=== PATIENT | male | born 1975 | race Caucasian/White ===

== ENCOUNTER 2018-07-29 05:48 | Emergency (ER) | payer OTHER, SELFPAY ==
--- NOTE | 2018-07-29 05:59 | ED.LOWEXIN ---
HPI - Extremity Injury (Lower) General Chief Complaint: Extremity Injury, Lower Stated Complaint: right foot pain/injured at work [id number] Time Seen by Provider: 07/29/18 05:59 Source: patient Mode of arrival: ambulatory Limitations: no limitations History of Present Illness HPI Narrative: 42-year-old with noncontributory medical history presents with right foot and ankle pain after a work related injury a few weeks ago. He was walking up an incline while caring a heavy object and felt pain in his foot. He has been pushing through it but due to ongoing pain his boss sent him for evaluation. He denies any significant or traumatic event. He denies numbness, tingling or weakness. He denies any history of the same. He denies any injury other than the work related event 2 weeks ago MD complaint: ankle injury and foot injury Onset (ago): week(s) Type of Injury: inversion Place: work Severity: moderate Relieving factors: immobilization Exacerbating factors: movement Context: walking Associated symptoms: snap/pop sensation, swelling and able to partially bear weight Related Data Home Medications Medication Instructions Recorded Confirmed lisinopril PO QDAY #0 06/16/17 metoprolol tartrate PO BID #0 06/16/17 trazodone PO HS #0 06/16/17 Previous Rx's Medication Instructions Recorded hydrocodone-acetaminophen [Cotopax[place]] 1 - 2 tab PO Q6HP PRN #10 tab 06/16/17 ondansetron [Zofran ODT] 4 mg SUBLINGUAL Q6HP PRN #8 odt 06/16/17 Allergies Allergy/AdvReac Type Severity Reaction Status Date / Time No Known Allergies Allergy Uncoded 02/24/18 12:46 Review of Systems Review of Systems GENERAL: Denies chills, fatigue, malaise, fever, sweats. HEENT: Denies sinus pain, ear pain, sore throat, difficulty swallowing, dizziness. RESPIRATORY: Denies dyspnea, cough, wheezing, hemoptysis, sputum. CARDIOVASCULAR: Denies chest pain, palpitations, orthopnea, edema, GASTROINTESTINAL: Denies nausea, vomiting, abdominal pain, diarrhea, constipation, melena. : Denies dysuria, frequency, incontinence, hematuria, urinary retention. MUSCULOSKELETAL: See HPI SKIN: Denies rash, skin lesions, or other NEUROLOGIC: Denies weakness, headache, numbness, change in speech, confusion, seizures, incoordination. PSYCHIATRIC: No concerning psychosocial issues. 12 point review of systems is negative except for those stated above [facility] Social History Smoking Status: Current every day smoker Exam Narrative Exam Narrative: GEN: AOx3 and in mild distress EYES: Pupils are equal, round, and reactive to light and accommodation. Extraoccular muscles are intact bilaterally. There is no subconjunctival hemorrhage or exudate. CHEST: Lungs are clear to auscultation bilaterally and free of wheezes, rales, or rhonchi. Heart rate is regular rhythm, there are no murmurs, clicks, rubs, or gallops. There is no chest wall tenderness. ABD: Abdomen is soft and nontender. There is no guarding or rebound. Bowel sounds are normal in all 4 quadrants. There is no mass or organomegaly. EXT: Full but painful range of motion at ankle and foot. No obvious external abnormalities such as swelling, ecchymosis or discoloration. Cap refill less than 2 sec, sensation intact SKIN: Warm, pink, and dry. No erythema or rash Initial Vital Signs Initial Vital Signs: Vital Signs Temperature 98 F 07/29/18 06:04 Pulse Rate 80 07/29/18 06:04 Respiratory Rate 18 07/29/18 06:04 Blood Pressure 140/101 H 07/29/18 06:04 Pulse Oximetry 99 07/29/18 06:04 Course Orders Ordered: ED Orders 07/29/18 06:39 XR ankle RT min 3V Stat XR foot RT min 3V Stat Vital Signs - 8 hr 07/29/18 06:04 Temperature 98 F Pulse Rate 80 Respiratory Rate 18 Blood Pressure 140/101 H Pulse Oximetry 99 MDM - Extremity Injury (Lower) Differential Diagnosis Likely ankle sprain and strain and ankle fracture Imaging Data Foot/Ankle Xray: Attestation: I personally reviewed and interpreted this imaging study as follows: My impression: No acute process Radiologist's impression: [address] [address] XRay Report Signed Patient: Eugene Meza LMR#: [id number] : 1975Acct:[id number] Age/Sex: 42 / MDate of Service: 07/29/18 Loc: ED Accession Number: [id number] Procedure: XR ankle RT min 3V Ordering Provider: Lionel Mcdonald D.O. PROCEDURE: XR ANKLE RT MIN 3V INDICATIONS: PAIN WITH WORK INJURY TECHNIQUE: 3 views of the ankle were acquired. COMPARISON: [facility], XR FOOT RT MIN 3V, 07/29/2018, 6:35. FINDINGS: Bones: No fractures or dislocations. Ankle mortise is normally aligned. No suspicious bony lesions. Large bone spur or heterotopic ossification superficial to the anterior process of talus. Soft tissues: No tibiotalar joint effusion. Achilles tendon appears normal. IMPRESSION: No fracture or dislocation. If clinical symptoms persist or clinical suspicion for pathology is high, a repeat examination in 7-10 days, or advanced imaging such as CT or MRI is suggested for further evaluation. Dictated by: Tracey Carrion M.D. on 07/29/2018 at 10:38 Approved by: Tracey Carrion M.D. on 07/29/2018 at 10:39 [place] [address] XRay Report Signed Patient: Eugene Meza LMR#: [id number] : 1975Acct:[id number] Age/Sex: 42 / MDate of Service: 07/29/18 Loc: ED Accession Number: [id number] Procedure: XR foot RT min 3V Ordering Provider: Lionel Mcdonald D.O. PROCEDURE: XR FOOT RT MIN 3V INDICATIONS: PAIN AFTER WORK INJURY TECHNIQUE: 3 views of the foot were acquired. COMPARISON: [facility], XR ANKLE RT MIN 3V, 07/29/2018, 6:35. FINDINGS: Bones: No fractures or dislocations. No suspicious bony lesions. Mild degenerative joint disease at the first tarsometatarsal joint and multiple interphalangeal joints. There is a large osteophyte or heterotopic ossification superficial to the anterior process of the talus. Soft tissues: No tibiotalar joint effusion. Achilles tendon appears normal. IMPRESSION: No fracture or dislocation. If clinical symptoms persist or clinical suspicion for pathology is high, a repeat examination in 7-10 days, or advanced imaging such as CT or MRI is suggested for further evaluation. Dictated by: Tracey Carrion M.D. on 07/29/2018 at 10:36 Approved by: Tracey Carrion M.D. on 07/29/2018 at 10:38 Discharge Plan Departure Patient Disposition: Home Clinical Impression: Ankle sprain and strain, Right foot strain Discharge Date/Time: 07/29/18 07:44 Interventions: ED Discharge Assessment Last Done: 07/29/18 07:43 Instructions: DI for Ankle Sprain Activity Restrictions/Additional Instructions: *You have been diagnosed with [acute right foot and ankle sprain ] *What to do: *Take medications as directed: Ibuprofen and Tylenol *Follow up with your primary care provider in 2-3 days, call for an appointment. Let them know you were seen in the Emergency Department and that we ask that you be seen in follow up *Return to ER if you should have any new, worsening or concerning symptoms Radiographic study has been interpreted by an emergency physician. The official diagnosis by radiology will be performed within the next 24 hours and should there be any change in outcome we will notify you of how to proceed. Prescriptions: No Action trazodone 50 mg Tablet PO HS Qty: 0 RF: 0 metoprolol tartrate 25 mg Tablet PO BID Qty: 0 RF: 0 lisinopril 2.5 mg Tablet PO QDAY Qty: 0 RF: 0 hydrocodone-acetaminophen [Cotopaxi] 5 MG/325 MG tablet 1 - 2 tab PO Q6HP PRNQty: 10 RF: 0 ondansetron [Zofran ODT] 4 MG tablet,disintegrating 4 mg Sublingual Q6HP PRNQty: 8 RF: 0 Referrals: Eugene Alexandra MD [Primary Care Provider] -
[2018-07-29 06:04] VITALS: BP 140/101; PULSE 80; RESP 18; TEMP 36.6; O2SAT 99; BMI 36.0
--- NOTE | 2018-07-29 06:39 | DI.RAD.S_ITS ---
PROCEDURE: XR ANKLE RT MIN 3V INDICATIONS: PAIN WITH WORK INJURY TECHNIQUE: 3 views of the ankle were acquired. COMPARISON: [facility], CR, XR FOOT RT MIN 3V, 07/29/2018, 6:35. FINDINGS: Bones: No fractures or dislocations. Ankle mortise is normally aligned. No suspicious bony lesions. Large bone spur or heterotopic ossification superficial to the anterior process of talus. Soft tissues: No tibiotalar joint effusion. Achilles tendon appears normal. IMPRESSION: No fracture or dislocation. If clinical symptoms persist or clinical suspicion for pathology is high, a repeat examination in 7-10 days, or advanced imaging such as CT or MRI is suggested for further evaluation. Dictated by: Tracey Carrion M.D. on 07/29/2018 at 10:38 Approved by: Tracey Carrion M.D. on 07/29/2018 at 10:39
--- NOTE | 2018-07-29 06:39 | DI.RAD.S_ITS ---
PROCEDURE: XR FOOT RT MIN 3V INDICATIONS: PAIN AFTER WORK INJURY TECHNIQUE: 3 views of the foot were acquired. COMPARISON: [facility], CR, XR ANKLE RT MIN 3V, 07/29/2018, 6:35. FINDINGS: Bones: No fractures or dislocations. No suspicious bony lesions. Mild degenerative joint disease at the first tarsometatarsal joint and multiple interphalangeal joints. There is a large osteophyte or heterotopic ossification superficial to the anterior process of the talus. Soft tissues: No tibiotalar joint effusion. Achilles tendon appears normal. IMPRESSION: No fracture or dislocation. If clinical symptoms persist or clinical suspicion for pathology is high, a repeat examination in 7-10 days, or advanced imaging such as CT or MRI is suggested for further evaluation. Dictated by: Tracey Carrion M.D. on 07/29/2018 at 10:36 Approved by: Tracey Carrion M.D. on 07/29/2018 at 10:38
--- NOTE | 2018-07-29 07:19 | ED_ITS ---
HPI - Extremity Injury (Lower) General Chief Complaint: Extremity Injury, Lower Stated Complaint: right foot pain/injured at work [id number] Time Seen by Provider: 07/29/18 05:59 Source: patient Mode of arrival: ambulatory Limitations: no limitations History of Present Illness HPI Narrative: 42-year-old with noncontributory medical history presents with right foot and ankle pain after a work related injury a few weeks ago. He was walking up an incline while caring a heavy object and felt pain in his foot. He has been pushing through it but due to ongoing pain his boss sent him for evaluation. He denies any significant or traumatic event. He denies numbness, tingling or weakness. He denies any history of the same. He denies any injury other than the work related event 2 weeks ago MD complaint: ankle injury and foot injury Onset (ago): week(s) Type of Injury: inversion Place: work Severity: moderate Relieving factors: immobilization Exacerbating factors: movement Context: walking Associated symptoms: snap/pop sensation, swelling and able to partially bear weight Related Data Home Medications Medication Instructions Recorded Confirmed lisinopril PO QDAY #0 06/16/17 metoprolol tartrate PO BID #0 06/16/17 trazodone PO HS #0 06/16/17 Previous Rx's Medication Instructions Recorded hydrocodone-acetaminophen [[place]] 1 - 2 tab PO Q6HP PRN #10 tab 06/16/17 ondansetron [Zofran ODT] 4 mg SUBLINGUAL Q6HP PRN #8 odt 06/16/17 Allergies Allergy/AdvReac Type Severity Reaction Status Date / Time No Known Allergies Allergy Uncoded 02/24/18 12:46 Review of Systems Review of Systems GENERAL: Denies chills, fatigue, malaise, fever, sweats. HEENT: Denies sinus pain, ear pain, sore throat, difficulty swallowing, dizziness. RESPIRATORY: Denies dyspnea, cough, wheezing, hemoptysis, sputum. CARDIOVASCULAR: Denies chest pain, palpitations, orthopnea, edema, GASTROINTESTINAL: Denies nausea, vomiting, abdominal pain, diarrhea, constipation, melena. : Denies dysuria, frequency, incontinence, hematuria, urinary retention. MUSCULOSKELETAL: See HPI SKIN: Denies rash, skin lesions, or other NEUROLOGIC: Denies weakness, headache, numbness, change in speech, confusion, seizures, incoordination. PSYCHIATRIC: No concerning psychosocial issues. 12 point review of systems is negative except for those stated above [facility] Social History Smoking Status: Current every day smoker Exam Narrative Exam Narrative: GEN: AOx3 and in mild distress EYES: Pupils are equal, round, and reactive to light and accommodation. Extraoccular muscles are intact bilaterally. There is no subconjunctival hemorrhage or exudate. CHEST: Lungs are clear to auscultation bilaterally and free of wheezes, rales, or rhonchi. Heart rate is regular rhythm, there are no murmurs, clicks, rubs, or gallops. There is no chest wall tenderness. ABD: Abdomen is soft and nontender. There is no guarding or rebound. Bowel sounds are normal in all 4 quadrants. There is no mass or organomegaly. EXT: Full but painful range of motion at ankle and foot. No obvious external abnormalities such as swelling, ecchymosis or discoloration. Cap refill less than 2 sec, sensation intact SKIN: Warm, pink, and dry. No erythema or rash Initial Vital Signs Initial Vital Signs: Vital Signs Temperature 98 F 07/29/18 06:04 Pulse Rate 80 07/29/18 06:04 Respiratory Rate 18 07/29/18 06:04 Blood Pressure 140/101 H 07/29/18 06:04 Pulse Oximetry 99 07/29/18 06:04 Course Orders Ordered: ED Orders 07/29/18 06:39 XR ankle RT min 3V Stat XR foot RT min 3V Stat Vital Signs - 8 hr 07/29/18 06:04 Temperature 98 F Pulse Rate 80 Respiratory Rate 18 Blood Pressure 140/101 H Pulse Oximetry 99 MDM - Extremity Injury (Lower) Differential Diagnosis Likely ankle sprain and strain and ankle fracture Imaging Data Foot/Ankle Xray: Attestation: I personally reviewed and interpreted this imaging study as follows: My impression: No acute process Radiologist's impression: [address] [address] XRay Report Signed Patient: Eugene Meza LMR#: [id number] : 1975Acct:[id number] Age/Sex: 42 / MDate of Service: 07/29/18 Loc: ED Accession Number: [id number] Procedure: XR ankle RT min 3V Ordering Provider: Lionel Mcdonald D.O. PROCEDURE: XR ANKLE RT MIN 3V INDICATIONS: PAIN WITH WORK INJURY TECHNIQUE: 3 views of the ankle were acquired. COMPARISON: [facility], XR FOOT RT MIN 3V, 07/29/2018, 6:35. FINDINGS: Bones: No fractures or dislocations. Ankle mortise is normally aligned. No suspicious bony lesions. Large bone spur or heterotopic ossification superficial to the anterior process of talus. Soft tissues: No tibiotalar joint effusion. Achilles tendon appears normal. IMPRESSION: No fracture or dislocation. If clinical symptoms persist or clinical suspicion for pathology is high, a repeat examination in 7-10 days, or advanced imaging such as CT or MRI is suggested for further evaluation. Dictated by: Tracey Carrion M.D. on 07/29/2018 at 10:38 Approved by: Tracey Carrion M.D. on 07/29/2018 at 10:39 [place] [address] XRay Report Signed Patient: Eugene Meza LMR#: [id number] : 1975Acct:[id number] Age/Sex: 42 / MDate of Service: 07/29/18 Loc: ED Accession Number: [id number] Procedure: XR foot RT min 3V Ordering Provider: Lionel Mcdonald D.O. PROCEDURE: XR FOOT RT MIN 3V INDICATIONS: PAIN AFTER WORK INJURY TECHNIQUE: 3 views of the foot were acquired. COMPARISON: [facility], XR ANKLE RT MIN 3V, 07/29/2018, 6:35. FINDINGS: Bones: No fractures or dislocations. No suspicious bony lesions. Mild degenerative joint disease at the first tarsometatarsal joint and multiple interphalangeal joints. There is a large osteophyte or heterotopic ossification superficial to the anterior process of the talus. Soft tissues: No tibiotalar joint effusion. Achilles tendon appears normal. IMPRESSION: No fracture or dislocation. If clinical symptoms persist or clinical suspicion for pathology is high, a repeat examination in 7-10 days, or advanced imaging such as CT or MRI is suggested for further evaluation. Dictated by: Tracey Carrion M.D. on 07/29/2018 at 10:36 Approved by: Tracey Carrion M.D. on 07/29/2018 at 10:38 Discharge Plan Departure Patient Disposition: Home Clinical Impression: Ankle sprain and strain, Right foot strain Discharge Date/Time: 07/29/18 07:44 Interventions: ED Discharge Assessment Last Done: 07/29/18 07:43 Instructions: DI for Ankle Sprain Activity Restrictions/Additional Instructions: *You have been diagnosed with [acute right foot and ankle sprain ] *What to do: *Take medications as directed: Ibuprofen and Tylenol *Follow up with your primary care provider in 2-3 days, call for an appointment. Let them know you were seen in the Emergency Department and that we ask that you be seen in follow up *Return to ER if you should have any new, worsening or concerning symptoms Radiographic study has been interpreted by an emergency physician. The official diagnosis by radiology will be performed within the next 24 hours and should there be any change in outcome we will notify you of how to proceed. Prescriptions: No Action trazodone 50 mg Tablet PO HS Qty: 0 RF: 0 metoprolol tartrate 25 mg Tablet PO BID Qty: 0 RF: 0 lisinopril 2.5 mg Tablet PO QDAY Qty: 0 RF: 0 hydrocodone-acetaminophen [[place]] 5 MG/325 MG tablet 1 - 2 tab PO Q6HP PRNQty: 10 RF: 0 ondansetron [Zofran ODT] 4 MG tablet,disintegrating 4 mg Sublingual Q6HP PRNQty: 8 RF: 0 Referrals: Eugene Alexandra MD [Primary Care Provider] -
[2018-07-29 07:30] VITALS: BP 133/96; PULSE 75; RESP 16; TEMP 36.8; O2SAT 98
== END 2018-07-29 07:44 | disposition home or self-care (01) ==
PROVIDERS: Emergency Provider Emergency Medicine; PCP Family Medicine
DX: S93.401A Sprain of unspecified ligament of right ankle, initial encounter (principal); S96.911A Strain of unspecified muscle and tendon at ankle and foot level, right foot, initial encounter; T73.3XXA Exhaustion due to excessive exertion, initial encounter
CPT/HCPCS: 73610; 73630; 99283

== ENCOUNTER 2023-03-21 13:17 | Emergency (ER) | payer SELFPAY ==
[2023-03-21 13:21] VITALS: BP 151/91; PULSE 75; RESP 18; TEMP 36.6; O2SAT 97; BMI 36.0
--- NOTE | 2023-03-21 13:28 | DI.RAD.S_ITS ---
PROCEDURE: XR HUMERUS LT 2V INDICATIONS: [place] TECHNIQUE: 2 views of the humerus were acquired. COMPARISON: None. FINDINGS: Bones: No fractures or dislocations. No suspicious bony lesions. Soft tissues: No suspicious soft tissue calcifications. IMPRESSION: No visualized acute fracture or dislocation. However, if clinical concern and/or pain persist, short interval imaging followup in 7-10 days is recommended, as occult injury cannot be definitively excluded. Dictated by: Belén Jolley M.D. on 03/21/2023 at 13:47 Approved by: Belén Jolley M.D. on 03/21/2023 at 13:48
--- NOTE | 2023-03-21 13:55 | ED_ITS ---
HPI - Extremity Injury (Upper) <CEE Gonzalez - Last Filed: 03/21/23 14:55> General Chief Complaint: Extremity Injury, Upper Stated Complaint: lt arm injury poss muscle tear Time Seen by Provider: 03/21/23 13:55 History of Present Illness HPI narrative: This is a 39 male with noncontributory medical history who presents emergency department complaining of a left upper arm injury concerning for a possible muscular tear. He states that he was hanging from a bar on his truck with both of his arms, and felt a tear underneath his left upper arm over his triceps and states that it was severely painful and felt like a pop. States it has been getting better since this injury, but today he noticed dark ecchymosis to this area and states it is tender along the bottom of his upper arm to palpation. He denies any short shoulder injury, states that reverse extension was weak initially but has gotten better over the week. Came in with concern about a blood clot or bleeding vessel. He is not anticoagulated, states that his pain has gotten better and his mobility was sensation is fully intact. Denies any numbness or tingling. Related Data Home Medications Medication Instructions Recorded Confirmed lisinopril 2.5 mg tablet PO QDAY ##0 06/16/17 metoprolol tartrate 25 mg tablet PO BID ##0 06/16/17 trazodone 50 mg tablet PO HS ##0 06/16/17 Previous Rx's Medication Instructions Recorded hydrocodone 5 mg-acetaminophen 325 1 - 2 tab PO Q6HP PRN #10 tabs 06/16/17 mg tablet (Lena) ondansetron 4 mg disintegrating 4 mg sublingual Q6HP PRN ##8 06/16/17 tablet (Zofran ODT) diclofenac sodium 1 % topical gel 2 g topical QID PRN arm pain #100 03/21/23 grams ibuprofen 600 mg tablet 600 mg PO Q8H PRN pain #30 tabs 03/21/23 lidocaine 5 % topical patch 1 patch topical DAILY #30 ea 03/21/23 Allergies Allergy/AdvReac Type Severity Reaction Status Date / Time No Known Allergies Allergy Uncoded 03/21/23 13:26 Review of Systems <CEE Gonzalez - Last Filed: 03/21/23 14:55> Review of Systems ROS Unobtainable: All systems reviewed & are unremarkable except as noted in HPI and below Patient History <CEE Gonzalez - Last Filed: 03/21/23 14:55> Social History Smoking Status: Current every day smoker Smoking Status: Current every day smoker alcohol intake frequency: a few times a month Substance Use Type: does not use Exam <CEE Gonzalez - Last Filed: 03/21/23 14:55> Narrative Exam Narrative: Reviewed vitals signs and nursing notes. General: Pleasant, sitting upright, in no acute distress, well groomed, afebrile MSK: moves all extremities, no weakness, normal tone, ambulatory without deficit left upper arm with ecchymosis on dependent triceps, he has tenderness over the proximal head of triceps, no tenderness over trapezius, posterior rotator cuff, pain is worst with backwards extension, no significant tenderness with abduction, adduction, or bicep flexion. Tricep area is soft to palpation with dark purple ecchymosis, no firm areas, no generalized edema. Skin: brisk capillary refill, without rash or wound Neuro: clear speech and normal cognition, A&O x3, GCS 15, no focal motor or sensation deficits Initial Vital Signs Initial Vital Signs: Vital Signs Temperature 97.9 F 03/21/23 13:21 Pulse Rate 75 03/21/23 13:21 Respiratory Rate 18 03/21/23 13:21 Blood Pressure 151/91 H 03/21/23 13:21 Pulse Oximetry 97 03/21/23 13:21 Oxygen Delivery Method Room Air 03/21/23 13:21 <Eugene Cordova DO - Last Filed: 03/21/23 15:13> Initial Vital Signs Initial Vital Signs: Vital Signs Temperature 97.9 F 03/21/23 13:21 Pulse Rate 75 03/21/23 13:21 Respiratory Rate 18 03/21/23 13:21 Blood Pressure 151/91 H 03/21/23 13:21 Pulse Oximetry 97 03/21/23 13:21 Oxygen Delivery Method Room Air 03/21/23 13:21 Course <CEE Gonzalez - Last Filed: 03/21/23 14:55> Orders Ordered: ED Orders 03/21/23 13:28 XR humerus LT 2V Stat Vital Signs Vital signs: Vital Signs - 8 hr 03/21/23 13:21 Temperature 97.9 F Pulse Rate 75 Respiratory Rate 18 Blood Pressure 151/91 H Pulse Oximetry 97 Oxygen Delivery Method Room Air <Eugene Cordova DO - Last Filed: 03/21/23 15:13> Orders Ordered: ED Orders 03/21/23 13:28 XR humerus LT 2V Stat Vital Signs Vital signs: Vital Signs - 8 hr 03/21/23 13:21 Temperature 97.9 F Pulse Rate 75 Respiratory Rate 18 Blood Pressure 151/91 H Pulse Oximetry 97 Oxygen Delivery Method Room Air MDM - Extremity Injury (Upper) <ROLA GonzalezP - Last Filed: 03/21/23 14:55> Imaging Data Extremity x-ray #1: Radiologist's Impression: PROCEDURE:? XR HUMERUS LT 2V ? INDICATIONS:? Inury ? TECHNIQUE:? 2 views of the humerus were acquired.? ? COMPARISON:? None. ? FINDINGS:? ? Bones:? No fractures or dislocations.? No suspicious bony lesions.? ? Soft tissues:? No suspicious soft tissue calcifications.? ? IMPRESSION:? No visualized acute fracture or dislocation. However, if clinical concern and/or pain persist, short interval imaging followup in 7-10 days is recommended, as occult injury cannot be definitively excluded. ? Dictated by: Belén Jolley M.D. on 03/21/2023 at 13:47 ? ? Approved by: Belén Jolley M.D. on 03/21/2023 at 13:48 ? [facility] Narrative Medical decision making narrative: Chief Complaint: injury to upper arm 4 days ago Independent historian: Patient Multiple etiologies for patient's symptoms considered including, but not limited to: Muscle strain/tear, ligamental injury, vascular injury, posterior rotator cuff injury, deltoid injury, triceps tear, tendon injury I have independently reviewed the patient's vital signs and nursing notes as well as prior records if available. My interpretation of imaging: Left upper arm x-rays negative for subcutaneous gas, acute fracture or other bony abnormality Patient has tenderness over the proximal triceps with pain on reverse extension and to palpation. He is neurovascularly intact with full range of motion only limited due to pain. Understands to follow-up with Orthopedics, no imaging indicated today. X-ray was completed prior to my assessment. Social considerations that may affect disposition: none Questions are addressed and there is agreement with the plan and for follow-up. I consulted with the ED attending physician Dr. Cordova as needed for higher level of care considerations and they were available for discussion and recommendations regarding plan of care and diagnostic testing. Patient is appropriate for outpatient management. Discharge Plan Departure Patient Disposition: Home Clinical Impression: Injury of triceps Activity Restrictions/Additional Instructions: Eugene, thank you for coming in for evaluation, sorry for your injury. This is most likely a tear of proximal triceps which has 2 major components. This bruising should start to get better after 1-2 weeks. It may be persistent for quite some time, given you a prescription diclofenac gel, ibuprofen and lidocaine patches to help with pain and the swelling. Please do not take ibuprofen on an empty stomach. Please schedule follow-up with Orthopedics, you may not need any intervention as this should heal but if there is worsening function or neglect, you may need surgical consultation. *You have been diagnosed with *What to do: *Please continue to take your regular medications as directed. [ ] New medication prescriptions sent to your pharmacy: [ ] [ x] New medication written as a paper prescription [ ] No new medications given *Please call and schedule follow up with your primary care provider in 2-3 days, at least for an update. Let them know you were seen in the Emergency Department for the above problem. We will electronically transmit a record of today's note if your PCP or specialist is in our system. *If you do not have a primary care provider please contact [phone] to [facility] with one of the [facility] primary care providers. *Return to the Emergency Department for worsening symptoms, inability to keep liquids down, fever greater than 101F, chills, or other concerning symptom. Prescriptions: New diclofenac sodium 1 % gel 2 g topical QID PRN (Reason: arm pain) Qty: 100 0RF Rx Instructions: apply to single elbow, wrist or hand; for hand includes palm/fingers/back of hand lidocaine 5 % adhesive patch,medicated 1 patch topical DAILY Qty: 30 0RF Rx Instructions: leave on most painful area for up to 12 hrs ibuprofen 600 mg tablet 600 mg PO Q8H PRN (Reason: pain) Qty: 30 0RF Rx Instructions: Take with food and water No Action trazodone 50 mg tablet PO HS Qty: 0 metoprolol tartrate 25 mg tablet PO BID Qty: 0 lisinopril 2.5 mg tablet PO QDAY Qty: 0 hydrocodone-acetaminophen [Lena] 5 MG/325 MG tablet 1 - 2 tab PO Q6HP PRNQty: 10 0RF ondansetron [Zofran ODT] 4 MG tablet,disintegrating 4 mg Sublingual Q6HP PRNQty: 8 0RF Referrals: [facility] [Provider Group] Eugene Alexandra MD [Primary Care Provider] - Stand Alone Forms: Patient Portal/API <Eugene Cordova DO - Last Filed: 03/21/23 15:13> Cosign ED Attending Cosignature Attestation: Dr Cordova Co-Sign Statement: I was available for consultation during this patient's emergency department visit. This chart is signed by myself for administrative purposes only. I did not have direct contact with this patient during this visit. They were seen independently by the [facility].
== END 2023-03-21 14:52 | disposition home or self-care (01) ==
PROVIDERS: Emergency Provider Nurse Practitioner Critical Care Medicine; PCP Family Medicine
DX: S49.92XA Unspecified injury of left shoulder and upper arm, initial encounter (principal); X50.9XXA Other and unspecified overexertion or strenuous movements or postures, initial encounter
CPT/HCPCS: 73060; 99283